=== PATIENT | female | born 1995 | race African-American/Black ===

== ENCOUNTER 2018-09-09 17:45 | Emergency (ER) | payer SELFPAY ==
[2018-09-09 19:11] LABS: Urine Blood NEGATIVE (NEG); Urine Glucose NEGATIVE (NEG); Urine Protein NEGATIVE (NEG); Urine Specific Gravity 1.025 (1.005-1.030)
[2018-09-09 19:12] LABS: Absolute Lymphocytes (CBC) 1.9 K/uL (0.7-4.9); Basophils % 1.1 % (0-1.3); Hematocrit 40.4 % (36.0-45.0); Lymphocytes % 29.2 % (15.3-44.8); RBC Red Blood Cell Count 4.58 M/uL (3.86-4.86)
[2018-09-09 19:45] LABS: Albumin 4.2 g/dL (3.4-5.0); Bilirubin Direct 0.2 mg/dL (0-0.2); Bilirubin Total 0.4 mg/dL (0.2-1.0); Potassium 4.1 mmol/L (3.5-5.1); Protein, Total 7.7 g/dL (6.4-8.2)
--- NOTE | 2018-09-09 20:22 | ER ---
Nurse's Notes [facility] Name: Nadira Chase Age: 23 yrs Sex: Female : 1995 Arrival Date: 09/09/2018 Time: 17:49 Bed 23 Private MD: Diagnosis: Low back pain Presentation: 09/09 17:49 Presenting complaint: Patient states: my lower back has been hurting for 2-3 days now, hj denies trauma to the area; LMP- 08/16/18;. Transition of care: patient was not received from another setting of care. Onset of symptoms was September 09, 2018. Risk Assessment: Do you want to hurt yourself or someone else? Patient reports no desire to harm self or others. Initial Sepsis Screen: Does the patient meet any 2 criteria? No. Patient's initial sepsis screen is negative. Does the patient have a suspected source of infection? No. Patient's initial sepsis screen is negative. Care prior to arrival: None. 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 - Social history:: Smoking status: unknown. - Ebola Screening: : No symptoms or risks identified at this time. Screenin:00 Abuse screen: Denies threats or abuse. Denies injuries from another. Nutritional rv screening: No deficits noted. Tuberculosis screening: No symptoms or risk factors identified. Fall Risk None identified. Assessment: 18:57 General: Appears in no apparent distress. comfortable, Behavior is calm, cooperative. rv Pain: Complains of pain in back. Neuro: Level of Consciousness is awake, alert, obeys commands, Oriented to person, place, time, situation. Cardiovascular: Patient's skin is warm and dry. Respiratory: Airway is patent. GI: No signs and/or symptoms were reported involving the gastrointestinal system. : No signs and/or symptoms were reported regarding the genitourinary system. EENT: No signs and/or symptoms were reported regarding the EENT system. Derm: Skin is intact. Musculoskeletal: Reports pain in back. Vital Signs: 17:51 BP 119 / 65; Pulse 63; Resp 18; Temp 99.0(O); Pulse Ox 99% on R/A; Weight 87.09 kg; hj Height 5 ft. 5 in. (165.10 cm); Pain 7/10; 19:29 BP 112 / 77; Pulse 51; Resp 15; Pulse Ox 100% ; rv 20:27 BP 119 / 79; Pulse 61; Resp 16; Temp 98.5; Pulse Ox 99% ; rv 17:51 Body Mass Index 31.95 (87.09 kg, 165.10 cm) ED Course: 17:49 Patient arrived in ED. hj 17:51 Triage completed. hj 17:51 Arm band placed on right wrist. hj 18:13 Jcarlos Vela PA is PHCP. cp 18:13 Arnold Barakat MD is Attending Physician. cp 18:55 Jay Brown RN is Primary Nurse. rv 18:56 Inserted saline lock: 20 gauge in right antecubital area, using aseptic technique. rv Blood collected. 19:00 Patient has correct armband on for positive identification. Bed in low position. Call rv light in reach. Side rails up X 1. Pulse ox on. NIBP on. 19:05 Ultrasound completed. Patient tolerated well. Notified RUNNING RIGGER/PA karan. sg3 19:50 US Abdomen Limited: RUQ In Process Unspecified. EDMS 20:27 No provider procedures requiring assistance completed. IV discontinued, intact, rv bleeding controlled, No redness/swelling at site. Pressure dressing applied. Administered Medications: No medications were administered Outcome: 20:20 Discharge ordered by MD. cp 20:28 Discharged to home ambulatory. rv 20:28 Condition: good 20:28 Discharge instructions given to patient, Instructed on discharge instructions, follow up and referral plans. medication usage, Demonstrated understanding of instructions, follow-up care, medications, Prescriptions given X 2. 20:28 Patient left the ED. rv Signatures: Dispatcher [employer] EDMS Shon Espinosa RN RN Jcarlos Vela PA PA cp Godinez, Sarah sg3 Jay Brown RN RN rv Corrections: (The following items were deleted from the chart) 17:53 17:51 Pulse 63bpm; Resp 18bpm; Pulse Ox 99% RA; Temp 99.0F Oral; 87.09 kg; Height 5 ft. hj 5 in.; BMI: 31.9; Pain 7/10; hj
--- NOTE | 2018-09-09 20:22 | EDPHYS ---
Physician Documentation [facility] Name: Nadira Chase Age: 23 yrs Sex: Female : 1995 Arrival Date: 09/09/2018 Time: 17:49 Bed 23 Private MD: ED Physician Arnold Barakat HPI: 09/09 18:28 This 26 yrs old Black Female presents to ER via Ambulatory with complaints of Back Pain.cp 18:28 The patient presents with pain that is acute, with no known mechanism of injury. The cp symptoms are located in the mid back area. Onset: The symptoms/episode began/occurred last 2-3 days. The pain does not radiate. Associated signs and symptoms: Pertinent positives: Pertinent negatives: chest pain, constipation, dysuria, fever, hematuria, incontinence, numbness, tingling, urinary retention, weakness. The problem was sustained from unknown cause. Modifying factors: the patient symptoms are aggravated by standing. Severity of symptoms: in the emergency department the symptoms are unchanged, despite home interventions. 18:28 The patient has not experienced similar symptoms in the past. 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 - Social history:: Smoking status: unknown. - Ebola Screening: : No symptoms or risks identified at this time. ROS: 18:35 Constitutional: Negative for body aches, chills, fever, poor PO intake. cp 18:35 Eyes: Negative for injury, pain, redness, and discharge. cp 18:35 ENT: Negative for drainage from ear(s), ear pain, sore throat, difficulty swallowing, difficulty handling secretions. 18:35 Cardiovascular: Negative for chest pain, edema, palpitations. 18:35 Respiratory: Negative for cough, shortness of breath, wheezing. 18:35 Abdomen/GI: Positive for abdominal pain, Negative for vomiting, diarrhea, constipation, anorexia, black/tarry stool, rectal bleeding, bowel incontinence. 18:35 Back: Positive for pain at rest, pain with movement, of the mid back area. 18:35 : Negative for urinary symptoms, pelvic pain, difficulty urinating, bladder incontinence, vaginal discharge. 18:35 Skin: Negative for rash. 18:35 Neuro: Negative for altered mental status, dizziness, headache, numbness, tingling, weakness. 18:35 All other systems are negative. Exam: 18:45 Constitutional: The patient appears in no acute distress, alert, awake, non-toxic, well cp developed, well nourished. 18:45 Head/Face: Normocephalic, atraumatic. cp 18:45 Eyes: Periorbital structures: appear normal, Conjunctiva: normal, no exudate, no injection, Sclera: no appreciated abnormality, Lids and lashes: appear normal, bilaterally. 18:45 ENT: External ear(s): are unremarkable, Nose: is normal, Mouth: Lips: moist, Oral mucosa: pink and intact, moist, Posterior pharynx: is normal, airway is patent, no erythema, no exudate. 18:45 Chest/axilla: Inspection: normal, Palpation: is normal, no crepitus, no tenderness. 18:45 Cardiovascular: Rate: normal, Rhythm: regular. 18:45 Respiratory: the patient does not display signs of respiratory distress, Respirations: normal, no use of accessory muscles, no retractions, no splinting, no tachypnea, labored breathing, is not present, Breath sounds: are clear throughout, no decreased breath sounds, no stridor, no wheezing. 18:45 Abdomen/GI: Inspection: abdomen appears normal, Bowel sounds: active, all quadrants, Palpation: soft, in all quadrants, mild abdominal tenderness, in the right upper quadrant, rebound tenderness, is not appreciated, voluntary guarding, is not appreciated, involuntary guarding, is not appreciated. 18:45 Back: pain, that is mild, of the mid back area, ROM is normal. 18:45 Neuro: Orientation: to person, place \T\ time. Mentation: is normal, Motor: moves all fours, strength is normal, Sensation: is normal, Gait: is steady, Deep tendon reflexes are 2+ (normal) in the right patellar, right Achilles, left patellar and left Achilles. Vital Signs: 17:51 BP 119 / 65; Pulse 63; Resp 18; Temp 99.0(O); Pulse Ox 99% on R/A; Weight 87.09 kg; hj Height 5 ft. 5 in. (165.10 cm); Pain 7/10; 19:29 BP 112 / 77; Pulse 51; Resp 15; Pulse Ox 100% ; rv 20:27 BP 119 / 79; Pulse 61; Resp 16; Temp 98.5; Pulse Ox 99% ; rv 17:51 Body Mass Index 31.95 (87.09 kg, 165.10 cm) hj MDM: 18:14 Patient medically screened. cp 20:20 Data reviewed: vital signs, nurses notes, lab test result(s), radiologic studies, cp ultrasound. 20:20 Differential diagnosis: Cholelithiasis Pyelonephritis Ureterolithiasis UTI, cp muscle strain. Counseling: I had a detailed discussion with the patient and/or guardian regarding: the historical points, exam findings, and any diagnostic results supporting the discharge/admit diagnosis, lab results, radiology results, to return to the emergency department if symptoms worsen or persist or if there are any questions or concerns that arise at home. Response to treatment: the patient's symptoms have mildly improved after treatment, and as a result, I will discharge patient. 20:20 ED course: VSS. Labs and US negative for acute findings. Will treat for musculoskeletal cp pain and discharge to home for continued monitoring. 09/09 18:29 Order name: Basic Metabolic Panel; Complete Time: 20:00 cp 04 20:00 Interpretation: Normal except: GFR 71. 09/09 18:29 Order name: CBC with Diff; Complete Time: 19:31 cp 09/09 18:29 Order name: Creatinine for Radiology; Complete Time: 20:00 cp 09/09 18:29 Order name: Hepatic Function; Complete Time: 20:00 cp 09/09 18:29 Order name: Lipase; Complete Time: 20:00 cp 04 19:09 Order name: Urine Dipstick--Ancillary (enter results); Complete Time: 19:31 ar5 09/09 18:29 Order name: IV Saline Lock; Complete Time: 18:55 cp 09/09 18:29 Order name: Labs collected and sent; Complete Time: 18:55 cp 09/09 18:29 Order name: US Abdomen Limited: RUQ cp 09/09 18:29 Order name: Urine Dipstick-Ancillary (obtain specimen); Complete Time: 18:55 cp 09/09 18:29 Order name: Urine Test (obtain specimen); Complete Time: 18:55 cp 09/09 19:09 Order name: Urine --Ancillary (enter results); Complete Time: 19:31 ar5 Administered Medications: No medications were administered Disposition: 09/09/18 20:20 Discharged to Home. Impression: Low back pain. - Condition is Stable. - Discharge Instructions: Back Pain, Adult, Back Exercises, [id number]. - Prescriptions for Ibuprofen 800 mg Oral Tablet - take 1 tablet by ORAL route every 8 hours As needed take with food; 30 tablet. Cyclobenzaprine 10 mg Oral Tablet - take 1 tablet by ORAL route every 8 hours As needed no driving while taking medication; 15 tablet. - Medication Reconciliation Form, Thank You Letter, Antibiotic Education, Prescription Opioid Use form. - Follow up: Private Physician; When: 2 - 3 days; Reason: Recheck today's complaints. - Problem is new. - Symptoms have improved. Addendum: 09/11/2018 19:53 Co-signature as Attending Physician, Arnold Barakat MD. r n Signatures: Dispatcher [employer] EDSD Arnold Barakat MD MD rn Joaquin, Henry RN RN Jcarlos Benoit PA PA cp Jay Brown, RN RN rv Corrections: (The following items were deleted from the chart) 09/09 20:28 20:20 09/09/2018 20:20 Discharged to Home. Impression: Low back pain. Condition is rv Stable. Forms are Medication Reconciliation Form, Thank You Letter, Antibiotic Education, Prescription Opioid Use. Follow up: Private Physician; When: 2 - 3 days; Reason: Recheck today's complaints. Problem is new. Symptoms have improved. cp
--- NOTE | 2018-09-09 20:35 | RAD REPORT ---
EXAM DESCRIPTION: US - Abdomen Exam Limited - 09/09/2018 7:51 pm CLINICAL HISTORY: Abdominal pain Preliminary findings provided at the time of the study. COMPARISON: None. FINDINGS: No gallstones, sludge or other abnormalities within the gallbladder lumen. There is no wal l thickening or pericholecystic fluid. No common duct stone or biliary tree dilatation identified. IMPRESSION: Normal gallbladder and biliary tree ultrasound.
== END 2018-09-09 20:28 | disposition home or self-care (01) ==
LOC: ER 17:45 → EDBD 17:45 → ER 20:28
DX: M54.5 Low back pain (principal)
CPT/HCPCS: 36415; 76705; 80048; 80076; 81003; 81025; 83690; 85025; 99284